=== PATIENT | male | born 1960 | race Caucasian/White ===

== ENCOUNTER 2016-10-16 17:45 | Emergency (ER) | payer SELFPAY ==
[2016-10-16 19:44] VITALS: BP 150/95
--- NOTE | 2016-10-16 19:55 | UC ---
Hand/Wrist HPI - HPI Summary HPI Summary: The patient comes in today for: 1. Right wrist pain: Onset: 2-3 weeks Palliative/provocative: Stretching makes the pain better. Quality: Throbbing, ache, Region: Right forearm. Severity: 10 Time: Constant. Associated symptoms: Previous injury: None Event: While he was lifting a mop bucket, it slipped and he grabbed it with his right hand which had a straining pull on it. He complains of spasms of his right forearm. He wants a muscle relaxer and NSAID as this helped his back in the past. He states that he thinks that there is some numbness in this area which is very slight. * - History Of Current Complaint Chief Complaint: UCUpperExtremity Stated Complaint: RIGHT WRIST INJURY-WC Time Seen by Provider: 10/16/16 19:47 Hx Obtained From: Patient - Allergies/Home Medications Allergies/Adverse Reactions: Allergies Allergy/AdvReac Type Severity Reaction Status Date / Time Amoxicillin Allergy See Comment Verified 10/16/16 19:29 PMH/Surg Hx/FS Hx/Imm Hx Previously Healthy: Yes Endocrine History Of: Denies: Diabetes, Thyroid Disease, Hyperthyroidism, Hypothyroidism, Dyslipidemia Cardiovascular History Of: Denies: Cardiac Disorders, Hypertension, Pacemaker/ICD, Myocardial Infarction , Congestive Heart Failure, Atrial Fibrillation, Deep Vein Thrombosis, Bleeding Disorders Respiratory History Of: Denies: COPD, Asthma, Bronchitis, Pneumonia, Pulmonary Embolism GI/ History Of: Denies: Gastroesophageal Reflux, Ulcer, Gastrointestinal Bleed, Gall Bladder Disease, Kidney Stones, Diverticulitis, Renal Disease, Urosepsis Neurological History Of: Denies: TIA, CVA, Dementia, Seizures, Migraine Psychological History Of: Denies: Anxiety, Depression, Bipolar Disorder, Schizophrenia, Post Traumatic Stress Disorder Cancer History Of: Denies: Lung Cancer, Colorectal Cancer, Breast Cancer, Prostate Cancer, Cervical Cancer Other History Of: Negative For: HIV, Hepatitis B, Hepatitis C, Anticoagulant Therapy - Surgical History Surgical History: Yes Surgery Procedure, Year, and Place: LEFT eardrum repair as child. Lasik eye surgery - Family History Known Family History: Negative: Cardiac Disease, Hypertension - Social History Occupation: Employed Full-time Alcohol Use: Rare Substance Use Type: None Smoking Status (MU): Never Smoked Tobacco - Immunization History Most Recent Influenza Vaccination: 2016 Most Recent Tetanus Shot: UTD Most Recent Pneumonia Vaccination: N/A Review of Systems Skin: Negative Eyes: Negative ENT: Negative Respiratory: Negative Cardiovascular: Negative Gastrointestinal: Negative Genitourinary: Negative Musculoskeletal: Arthralgia All Other Systems Reviewed And Are Negative: Yes Physical Exam Triage Information Reviewed: Yes Appearance: Well-Appearing, No Pain Distress, Well-Nourished Vital Signs: Initial Vital Signs Temp 98.7 F 10/16/16 19:30 Pulse 87 10/16/16 19:30 Resp 16 10/16/16 19:30 BP 150/95 10/16/16 19:30 Pulse Ox 95 10/16/16 19:30 Vital Signs Reviewed: Yes Eyes: Positive: Conjunctiva Clear. Negative: Discharge ENT: Positive: Hearing grossly normal. Negative: Pharyngeal erythema, Nasal congestion, Nasal drainage, TM bulging, TM dull, TM red, Tonsillar swelling, Tonsillar exudate Dental: Negative: Gross Decay/Caries @, Dental Fracture @ Neck: Positive: Supple, Nontender, No Lymphadenopathy. Negative: Nuchal Rigidity Respiratory: Positive: Chest non-tender, Lungs clear, No respiratory distress, No accessory muscle use. Negative: Crackles, Wheezing Cardiovascular: Positive: RRR, No Murmur Abdomen Description: Positive: Nontender, No Organomegaly, Soft Musculoskeletal: Positive: Strength Intact, ROM Intact, Other: - Finklestein's test was normal. There was no marked tenderness to palpation of the forearm. There was no restriction to the range of motion. No edema, no ecchymosis, no erythema, no atrophy. Neurological: Positive: Alert, Muscle Tone Normal Psychological: Positive: Age Appropriate Behavior, Consolable Skin: Negative: rashes, breakdown Hand/Wrist Course/Dx - Course Course Of Treatment: Patient was told of his diagnostic and treatment options. He just wants a muscle relaxant and NSAIDS. - Differential Dx/Diagnosis Provider Diagnoses: high blood pressure. Right forearm pain with spasms. Discharge - Discharge Plan Condition: Stable Disposition: HOME Patient Education Materials: Tenosynovitis (ED) Referrals: Mateus GRANT,Fabian Murcia [Primary Care Provider] - 3 Days (Please see your primary care provider later this week to see how well you are doing. If you get worse, please be seen sooner.)
== END 2016-10-16 20:17 | disposition home or self-care (01) ==
LOC: UCCORT 17:45
DX: M79.631 Pain in right forearm (principal); M62.838 Other muscle spasm; R03.0 Elevated blood-pressure reading, without diagnosis of hypertension; Z88.0 Allergy status to penicillin
CPT/HCPCS: 99202; G0463

== ENCOUNTER 2017-08-11 07:12 | Emergency (ER) | payer BC, OTHER ==
[2017-08-11 08:07] VITALS: BP 118/74
--- NOTE | 2017-08-11 08:28 | UC ---
Skin Complaint HPI - HPI Summary HPI Summary: bumpy and scaly rash on the right 4th finger, red and swollen, painful, has been this way for 2 months, has tried OTC creams with no relief - History of Current Complaint Chief Complaint: UCRash Time Seen by Provider: 08/11/17 08:13 Stated Complaint: SKIN COMPLAINT Hx Obtained From: Patient Onset/Duration: Sudden Onset, Lasting Weeks Skin Exposure Onset/Duration: Weeks Ago Timing: Constant Onset Severity: Mild Current Severity: Moderate Pain Intensity: 0 Location: Discrete, Hand (Right) Character: Swelling, Pruritus, Redness, Raised, Painful Aggravating Factor(s): Touch Alleviating Factor(s): Nothing Associated Signs & Symptoms: Positive: Rash Related History: Possible Reaction to: Environmental Exposure - Allergy/Home Medications Allergies/Adverse Reactions: Allergies Allergy/AdvReac Type Severity Reaction Status Date / Time amoxicillin Allergy See Comment Verified 08/11/17 07:57 MS Amoxicillin [Amoxicillin] Allergy See Comment Verified 08/11/17 07:57 bee sting Allergy Hives Uncoded 08/11/17 07:57 Home Medications: Home Medications Ibuprofen TAB* [Motrin TAB* 400 MG] 400 mg PO ONCE PRN 08/11/17 [History Confirmed 08/11/17] Review of Systems Constitutional: Negative Skin: Rash Eyes: Negative ENT: Negative Respiratory: Negative Cardiovascular: Negative Gastrointestinal: Negative Genitourinary: Negative Motor: Negative Neurovascular: Negative Musculoskeletal: Negative Neurological: Negative Psychological: Negative Is Patient Immunocompromised?: No All Other Systems Reviewed And Are Negative: Yes PMH/Surg Hx/FS Hx/Imm Hx Previously Healthy: Yes Other History Of: Negative For: HIV, Hepatitis B, Hepatitis C, Anticoagulant Therapy - Surgical History Surgical History: Yes Surgery Procedure, Year, and Place: LEFT eardrum repair as child. Lasik eye surgery - Family History Known Family History: Negative: Cardiac Disease, Hypertension - Social History Alcohol Use: Occasionally Substance Use Type: None Smoking Status (MU): Never Smoked Tobacco - Immunization History Most Recent Influenza Vaccination: 2016 Most Recent Tetanus Shot: UTD Most Recent Pneumonia Vaccination: N/A Physical Exam Triage Information Reviewed: Yes Appearance: Well-Appearing, Well-Nourished, Pain Distress Vital Signs: Initial Vital Signs Temp 98.3 F 08/11/17 08:00 Pulse 74 08/11/17 08:00 Resp 16 08/11/17 08:00 BP 118/74 08/11/17 08:00 Pulse Ox 96 08/11/17 08:00 Vital Signs Reviewed: Yes Eye Exam: Normal ENT Exam: Normal ENT: Positive: Hearing grossly normal, Pharynx normal Dental Exam: Normal Neck exam: Normal Neck: Positive: Supple, Nontender, No Lymphadenopathy Respiratory Exam: Normal Respiratory: Positive: Chest non-tender, Lungs clear, Normal breath sounds Cardiovascular Exam: Normal Cardiovascular: Positive: RRR, No Murmur, Pulses Normal Abdominal Exam: Normal Abdomen Description: Positive: Nontender, No Organomegaly, Soft Bowel Sounds: Positive: Present Musculoskeletal Exam: Normal Musculoskeletal: Positive: Strength Intact, ROM Intact, No Edema Neurological Exam: Normal Neurological: Positive: Alert, Muscle Tone Normal Psychological Exam: Normal Skin Exam: Normal Course/Dx - Course Course Of Treatment: hx obtained, exam performed ,meds reviewed, treated for dyshidrotic eczema and underlying cellulitis - Differential Diagnoses - Skin Complaint Differential Diagnoses: Cellulitis, Contact Dermatitis, Eczema, Medication; Adverse Reaction, Urticaria - Diagnoses Provider Diagnoses: dyshidrotic eczema. cellulitis of right 4th finger Discharge - Discharge Plan Condition: Stable Disposition: HOME Prescriptions: Cephalexin CAP* [Keflex CAP*] 500 mg PO BID #10 cap Triamcinolone Acetonide 15 gm TP BID 14 Days #1 tube Patient Education Materials: Dyshidrotic Eczema (ED) Referrals: Harman Montgomery DO [Primary Care Provider] - Additional Instructions: 1. use the cream twice a day for 2 weeks, take a week break, and then restart as necessary. I have provided 2 refills as needed. 2. take the antibiotic as prescribed. 3. Keep the finger dry completely after washing hands. 4. Follow up if not improving over the next month.
== END 2017-08-11 08:37 | disposition home or self-care (01) ==
LOC: UCCORT 07:12
DX: L30.1 Dyshidrosis [pompholyx] (principal); L03.011 Cellulitis of right finger
CPT/HCPCS: 99212; G0463